=== PATIENT | male | born 1970 | race Caucasian/White ===

== ENCOUNTER 2020-04-27 00:15 | Emergency (ER) | payer MEDICAID ==
[2020-04-27] MEDS ORDERED: AMOXICILLIN TR/POT CLAVULANATE 875-125 MG TAB PO ONE (00:39)
[2020-04-27] MEDS ORDERED: DIPH/PERTUSS(ACELL)/TETANUS VAC/PF 0.5 ML SYR (>=10YO) IM ONE (00:39)
--- NOTE | 2020-04-27 00:41 | ER Document Report ---
ED Medical Screen (RME) - General Stated Complaint: LEG INJURY Time Seen by Provider: 04/27/20 00:38 Notes: HPI: 50-year-old male presenting to the emergency department complaining of multiple scratches and bites to the right lower leg and foot from his mother's cat. He does not believe the cat is up-to-date on vaccinations. Animal control has not yet been notified. Patient is not up-to-date on his tetanus vaccination. Patient also states that he is supposed to be on Eliquis because of blood clots in both legs but ran out of his medication 3 days ago. PHYSICAL EXAMINATION: There are multiple superficial puncture and bite sites to the foot and multiple scratches to the right lower leg I have greeted and performed a rapid initial assessment of this patient. A comprehensive ED assessment and evaluation of the patient, analysis of test results and completion of medical decision making process will be conducted by an additional ED providers. Physical Exam - Vital signs Vitals: Temp Pulse Resp BP Pulse Ox 98.0 F 87 18 119/76 95 04/27/20 00:21 04/27/20 00:21 04/27/20 00:21 04/27/20 00:21 04/27/20 00:21 Course - Vital Signs Vital signs: Temp Pulse Resp BP Pulse Ox 98.0 F 87 18 119/76 95 04/27/20 00:04/27/20 00:21 04/27/20 00:21 04/27/20 00:21 04/27/20 00:21
--- NOTE | 2020-04-27 01:56 | RADIOLOGY REPORT (SQ) ---
EXAM DESCRIPTION: XR FOOT 3 OR MORE VIEWS COMPLETED DATE/TME: 04/27/2020 00:39 CLINICAL HISTORY: 50 years, Male, cat bite FB COMPARISON: None. NUMBER OF VIEWS: Three TECHNIQUE: Three views of the right foot LIMITATIONS: None. FINDINGS: No acute fracture, dislocation, erosion, or periosteal reaction. No radiopaque foreign body. No large soft tissue swelling. Tiny plantar calcaneal spur. IMPRESSION: No acute fracture or dislocation. No radiopaque foreign body. copyright 2010 [employer]- All Rights Reserved
[2020-04-27] MEDS ORDERED: MORPHINE SULFATE IR 15 MG TABLET PO ONE (03:16)
--- NOTE | 2020-04-27 03:34 | ER Document Report ---
ED Animal Bite - General Chief Complaint: Cat Bite Stated Complaint: LEG INJURY Time Seen by Provider: 04/27/20 00:38 Notes: 50-year-old male presenting today with right lower extremity cat bites and ankle swelling. States it occurred around 11pm-12pm yesterday. States that cat is not vaccinated. Does not know the last time he had a tetanus shot. Has hhx of bilateral dvts. Is on Eliquis and has an IVC filter. Denies any fevers, chills or additional symptoms. - Related Data Allergies/Adverse Reactions: ibuprofen Allergy (Verified 04/27/20 00:43) tramadol Allergy (Verified 04/27/20 00:43) Past Medical History - Social History Smoking Status: Current Every Day Smoker Chew tobacco use (# tins/day): No Frequency of alcohol use: None Drug Abuse: Marijuana Family History: Reviewed & Not Pertinent Patient has homicidal ideation: No - Past Medical History Cardiac Medical History: Reports: Hx DVT Pulmonary Medical History: Reports: None EENT Medical History: Reports: None Endocrine Medical History: Reports: None GI Medical History: Reports: None Psychiatric Medical History: Reports: Hx Depression Review of Systems - Review of Systems Constitutional: No symptoms reported EENT: No symptoms reported Cardiovascular: No symptoms reported Respiratory: No symptoms reported Gastrointestinal: No symptoms reported Genitourinary: No symptoms reported Male Genitourinary: No symptoms reported Skin: See HPI Hematologic/Lymphatic: Blood clots Neurological/Psychological: No symptoms reported Physical Exam - Vital signs Vitals: Temp Pulse Resp BP Pulse Ox 98.0 F 87 18 119/76 95 04/27/20 00:21 04/27/20 00:21 04/27/20 00:21 04/27/20 00:21 04/27/20 00:21 Interpretation: Normal - Notes Notes: Adult General: GENERAL: Alert, interacts well. No acute distress HEAD: Normocephalic, atraumatic EYES: Extraocular movements intact. ENT: Airway patent. Nares patent. NECK: Full range of motion. Supple. Trachea midline. ABDOMEN: Soft, nontender. Nondistended. Bowel sounds present in all 4 quadrants. GENITOURINARY: Deferred EXTREMITIES: Moves all 4 extremities spontaneously. right ankle swelling, normal radial and dorsal pedis pulses bilaterally. No cyanosis. BACK: Moves all extremities with full range of motion. NEUROLOGICAL: Alert and oriented x3. Normal speech. Cranial nerves II through XII grossly intact. Strength 5/ 5 in all extremities. PSYCH: Normal affect, normal mood. SKIN: Multiple scratches along plantar and dorsal aspect of right foot. scratches along ankle. Healing wound on anterior richardson. Course - Re-evaluation Re-evalutation: 04/27/20 04:17 Patient with multiple superficial cat scratches on his right lower extremity starting at the mid calf down. Wounds were cleaned with Shur-Clens. He has good hemostasis of his wounds. Ankle is swollen. Good dorsalis pedis pulse. He was given first dose of Augmentin in the ER. Will need to continue on Augmentin 875mg bid for 7 days. Prescription was written. Discussed post exposure prophylaxis for rabies regimen. Animal is likely able to be quarantined for 10 days. Patient declines the prophylaxis at this time. Recommend rest, ice, compression and elevation. Can use Tylenol to help alleviate pain. Do not feel narcotics are necessary at this time. Recommend follow-up with primary care provider as soon as possible. Return precautions to the emergency department discussed to include fevers, chills, erythema, worsening swelling or tenderness. Patient acknowledges and verbalizes understanding of instructions. All questions answered - Vital Signs Vital signs: Temp Pulse Resp BP Pulse Ox 98.0 F 87 18 119/76 95 04/27/20 00:43 04/27/20 00:21 04/27/20 00:21 04/27/20 00:21 04/27/20 00:21 Discharge - Discharge Clinical Impression: Cat scratch Condition: Stable Disposition: HOME, SELF-CARE Additional Instructions: Please keep area clean and dry. You can clean the area with soap and water. Return to the ER signs of infection to include fever, chills, erythema, worsening swelling or discharge. Please follow up with your primary care as soon as possible. Prescriptions: Amoxicillin/Potassium Clav [Augmentin 875-125 Tablet] 1 tab PO BID #14 tablet
[2020-04-27 05:21] VITALS: BP 124/76
== END 2020-04-27 04:50 | disposition home or self-care (01) ==
LOC: ER 00:15
DX: S90.811A Abrasion, right foot, initial encounter (principal); S90.511A Abrasion, right ankle, initial encounter; S80.811A Abrasion, right lower leg, initial encounter; W55.03XA Scratched by cat, initial encounter; S81.851A Open bite, right lower leg, initial encounter; W55.01XA Bitten by cat, initial encounter; Y92.009 Unspecified place in unspecified non-institutional (private) residence as the place of occurrence of the external cause; Z23 Encounter for immunization; F17.200 Nicotine dependence, unspecified, uncomplicated; F12.10 Cannabis abuse, uncomplicated; I82.409 Acute embolism and thrombosis of unspecified deep veins of unspecified lower extremity; Z79.01 Long term (current) use of anticoagulants; Z88.8 Allergy status to other drugs, medicaments and biological substances; Z88.6 Allergy status to analgesic agent; Z88.5 Allergy status to narcotic agent
CPT/HCPCS: 99283; 90471; 73630; 90715; J3490